=== PATIENT | male | born 1975 | race African-American/Black ===

== ENCOUNTER 2017-08-18 19:18 | Emergency (ER) | payer OTHER ==
[2017-08-18 19:24] VITALS: BP 102/59; PULSE 51; TEMP 97.7; BMI 24.2
--- NOTE | 2017-08-18 20:42 | PDOC ---
History of Present Illness - General Chief Complaint: Injury Stated Complaint: HAND INJURY Time Seen by Provider: 08/18/17 19:29 History Source: Patient Exam Limitations: No Limitations - History of Present Illness Initial Comments: 08/18/17 20:35 CHIEF COMPLAINT: Injury to left fourth and fifth finger HISTORY OF PRESENT ILLNESS: Patient is a 41-year-old male with history of dislocation to left fourth and fifth fingers. 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 No edema, no erythema, no further deformity. His job requested a ckearance note in order to return to work. Past History - Past Medical History Allergies/Adverse Reactions: Allergies Allergy/AdvReac Type Severity Reaction Status Date / Time No Known Allergies Allergy Verified 08/18/17 19:24 Home Medications: Ambulatory Orders Ibuprofen [Motrin -] 600 mg PO TID #21 tablet 08/18/17 Other medical history: denies - Suicide/Smoking/Psychosocial Hx Smoking History: Current every day smoker Number of Cigarettes Smoked Daily: 10 Cigars Per Day: 2 Information on smoking cessation initiated: No Hx Alcohol Use: No Drug/Substance Use Hx: No Substance Use Type: None Review of Systems - Review of Systems Constitutional: No: Symptoms Reported Musculoskeletal: Yes: Joint Pain, Joint Swelling Integumentary: No: Symptoms Reported, Bruising, Erythema Neurological: No: Paresthesia, Tingling, Tremors All Other Systems: Reviewed and Negative *Physical Exam - Vital Signs Last Vital Signs Temp Pulse Resp BP Pulse Ox 97.7 F 51 L 18 102/59 99 08/18/17 19:19 08/18/17 19:19 08/18/17 19:19 08/18/17 19:19 08/18/17 19:19 - Physical Exam General Appearance: Yes: Appropriately Dressed. No: Apparent Distress Respiratory/Chest: positive: Lungs Clear, Normal Breath Sounds Cardiovascular: positive: Regular Rhythm, Regular Rate Musculoskeletal: positive: Other (deformity to the PIP of the left fourth and fifth fingers. ) Extremity: positive: Normal Range of Motion. negative: Normal Inspection, Swelling, Erythema, Inflammation Integumentary: positive: Normal Color, Dry. negative: Erythema, Swelling, Ecchymosis, Bruising Neurologic: positive: Alert, Normal Mood/Affect Procedures - Splinting Splint Location: Left: Finger (fourth and fifth finger, to rest joint. ) Hand-Made Type: orthoglass (hand splinted two fingers.) Post-Proc Neuro Vasc Exam: normal Complications: No ED Treatment Course - RADIOLOGY Radiology Studies Ordered: Category Date Time Status HAND- LEFT [RAD] Stat Radiology 08/18/17 19:28 Taken Medical Decision Making - Medical Decision Making 08/18/17 20:40 A/P: Patient here for evaluation of mild crush injury to left fourth and fifth fingers. Patient has a known deformity to the same fingers and states that the appearance is unchanged. Will apply splint To rest fingers, Motrin for pain, ice and elevate follow-up with hand surgeon. X-ray demonstrates old dislocation with pseudo-bone formation which may have swelling from incident today. Will discharge on Motrin. *DC/Admit/Observation/Transfer Diagnosis at time of Disposition: History of dislocation of finger Crush injury to finger Qualifiers: Encounter type: initial encounter Qualified Code(s): S67.10XA - Crushing injury of unspecified finger(s), initial encounter - Discharge Dispostion Disposition: HOME Condition at time of disposition: Good Admit: No - Prescriptions Prescriptions: Ibuprofen [Motrin -] 600 mg PO TID #21 tablet - Referrals Referrals: Shari Ambrose [Primary Care Provider] - Charles Yoder MD [Staff Physician] - - Patient Instructions Additional Instructions: 1. Please return to the emergency department with any redness, swelling, increased pain, or any other concerns. 2. Keep splint on until pain resolves. 3. Please follow up in the office of Dr. Yoder within a week if pain persists. 4. No weightbearing 5. Ice and elevate when at rest. 6. Motrin for pain - Post Discharge Activity Forms/Work/School Notes: Back to Work
== END 2017-08-18 20:48 | disposition home or self-care (01) ==
LOC: JERFT 19:18
PROC: 2W3KX1Z Immobilization of Left Finger using Splint (ICD-10-PCS; principal; 2017-08-18)
DX: S67.195A Crushing injury of left ring finger, initial encounter (principal); S67.197A Crushing injury of left little finger, initial encounter; X50.0XXA Overexertion from strenuous movement or load, initial encounter; Y93.E6 Activity, residential relocation; Y92.89 Other specified places as the place of occurrence of the external cause; Y99.0 Civilian activity done for income or pay
CPT/HCPCS: 29130; 73130-TC-LT; 99281-25

== ENCOUNTER 2017-08-29 11:10 | Emergency (ER) | payer OTHER ==
[2017-08-29 11:19] VITALS: BP 120/86; PULSE 79; TEMP 98.2; BMI 22.8
[2017-08-29] MEDS ORDERED: KETOROLAC TROMETHAMINE 60 MG/2 ML VIAL IM ONE (11:39)
[2017-08-29] MEDS ORDERED: KETOROLAC TROMETHAMINE 60 MG/2 ML VIAL ONE (11:43)
--- NOTE | 2017-08-29 11:48 | PDOC ---
History of Present Illness - General Chief Complaint: Pain Stated Complaint: LT ARM PAIN Time Seen by Provider: 08/29/17 11:24 - History of Present Illness Initial Comments: 08/29/17 11:41 CHIEF COMPLAINT: shoulder pain HISTORY OF PRESENT ILLNESS: 41 yo M with no significant PMH presents to [facility] with shoulder pain s/p injury two days ago. Patient reports that he slipped down stairs two days ago and while trying to catch himself by grabbing onto the banister, he felt "like my shoulder came out of the socket, and then I think it went back in, but ever since then it's been hurting a lot." PAST MEDICAL HISTORY: Denies past medical history FAMILY HISTORY: Denies SOCIAL HISTORY: Denies tobacco, alcohol, illicit drug use. SURGICAL HISTORY: Denies ALLERGIES: No known drug allergies REVIEW OF SYSTEMS General/Constitutional: Denies fever or chills. Denies weakness. HEENT: Denies change in vision. Denies ear pain or discharge. Denies sore throat. Cardiovascular: Denies chest pain or shortness of breath. Respiratory: Denies cough, wheezing, or hemoptysis. Gastrointestinal: Denies nausea, vomiting, diarrhea or constipation. Denies rectal bleeding. Genitourinary: Denies dysuria, frequency, or change in urination. Musculoskeletal: Left shoulder pain x 2 days. Denies neck or back pain. Skin and breasts: Denies rash or easy bruising. Neurologic: Denies headache, vertigo, loss of consciousness, or loss of sensation. PHYSICAL EXAM General Appearance: Well-appearing, appropriately dressed. No apparent distress. HEENT: EOMI, PERRLA, normal ENT inspection, normal voice, TMs normal, pharynx normal. No conjunctival pallor. No photophobia, scleral icterus. Neck: Supple. Trachea midline. No tenderness, rigidity, carotid bruit, stridor , lymphadenopathy, or thyromegaly. Respiratory/Chest: Lungs CTAB. Cardiovascular: RRR. S1, S2. Musculoskeletal/Extremities: +Neer/Hawkin's test. +Empty can test. FROM of all other extremities, normal capillary refill. No tenderness to extremities, pedal edema, swelling, erythema or deformity. Integumentary: Appropriate color, dry, warm. No cyanosis, erythema, jaundice or rash Neurologic: corporate driver II-XII intact. Fully oriented, alert. Appropriate mood/affect. Motor strength 5/5. No appreciable EOM palsy, facial droop or sensory deficit. Past History - Past Medical History Allergies/Adverse Reactions: Allergies Allergy/AdvReac Type Severity Reaction Status Date / Time No Known Allergies Allergy Verified 08/29/17 11:19 Home Medications: Ambulatory Orders Ibuprofen 600 mg PO TID PRN #30 tablet 08/29/17 Lidocaine 5% Patch [Lidoderm -] 1 patch TP DAILY PRN #7 patch 08/29/17 Other medical history: NONE - Suicide/Smoking/Psychosocial Hx Smoking History: Current every day smoker Number of Cigarettes Smoked Daily: 4 Cigars Per Day: 2 Information on smoking cessation initiated: Yes 'Breaking Loose' booklet given: 08/29/17 Hx Alcohol Use: No Drug/Substance Use Hx: No Substance Use Type: None *Physical Exam - Vital Signs Last Vital Signs Temp Pulse Resp BP Pulse Ox 98.2 F 79 20 120/86 100 08/29/17 11:16 08/29/17 11:16 08/29/17 11:16 08/29/17 11:16 08/29/17 11:16 ED Treatment Course - RADIOLOGY Radiology Studies Ordered: Category Date Time Status SHOULDER-LEFT [RAD] Stat Radiology 08/29/17 11:40 Ordered Medical Decision Making - Medical Decision Making 08/29/17 11:48 41 yo M with no significant PMH presents to [facility] with shoulder pain s/p injury two days ago. Clinical presentation consistent with rotator cuff injury. -60 mg Toradol -x-ray r/o fx/subluxation Advised patient to continue taking medication for pain. *DC/Admit/Observation/Transfer Diagnosis at time of Disposition: Rotator cuff injury Qualifiers: Encounter type: initial encounter Laterality: left Qualified Code(s): S46.002A - Unspecified injury of muscle(s) and tendon(s) of the rotator cuff of left shoulder, initial encounter; S46.002A - Unspecified injury of muscle(s) and tendon(s) of the rotator cuff of left shoulder, initial encounter - Discharge Dispostion Disposition: HOME Condition at time of disposition: Stable Admit: No - Prescriptions Prescriptions: Ibuprofen 600 mg PO TID PRN #30 tablet PRN Reason: Pain Lidocaine 5% Patch [Lidoderm -] 1 patch TP DAILY PRN #7 patch PRN Reason: Pain - Referrals Referrals: Charles Yoder MD [Staff Physician] - - Patient Instructions Printed Discharge Instructions: DI for Rotator Cuff Injury, DI for Shoulder Pain, Lidocaine Transdermal Patch Additional Instructions: Please use medications as directed. Take the ibuprofen every 8 hours for at least the first 2-3 days to help decrease any inflammation caused by your injury. If your pain persists past 3-5 days, please follow up with orthopedics for further evaluation. If you develop any new or worsening symptoms, please return to the ER.
== END 2017-08-29 12:13 | disposition home or self-care (01) ==
LOC: JERFT 11:10
PROC: 3E0233Z Introduction of Anti-inflammatory into Muscle, Percutaneous Approach (ICD-10-PCS; principal; 2017-08-29)
DX: S46.002A Unspecified injury of muscle(s) and tendon(s) of the rotator cuff of left shoulder, initial encounter (principal); W10.8XXA Fall (on) (from) other stairs and steps, initial encounter; Y93.89 Activity, other specified; Y92.89 Other specified places as the place of occurrence of the external cause
CPT/HCPCS: 73030-TC-LT; 99281-25